=== PATIENT | male | born 1960 ===

== ENCOUNTER 2019-03-01 06:48 | Day surgery (SDC) | payer BC ==
[~2019-03-01] VITALS: Ht 170.2 cm; Wt 86.4 kg
[~2019-03-01 06:48] MED LIST: OXYC5 PO
--- NOTE | 2019-03-01 07:56 | NUR ---
PATIENT GAVE PERMISSION FOR ME TO CARE FOR HIM TODAY 03/01/19. History, Chart, Medications and Allergies reviewed before start of procedure.Patient confirms NPO status and agrees with scheduled surgery. Lungs clear T/O to Auscultation.Patient states colon prep results clear.
--- NOTE | 2019-03-01 07:58 | NUR ---
STUDENT RN RAY ASSISING IN CARE. AGREE WITH HER PREOPERATIVE CARE AND CHARTING OF PATIENT.
--- NOTE | 2019-03-01 08:15 | NUR ---
03/01/19 0814 Liss Mendez History, Chart, Medications and Allergies reviewed before start of procedure.PATIENT DETERMINED TO BE ASA APPROPRIATE FOR PROPOFOL SEDATION PRIOR TO START OF PROCEDURE BY .MONITOR INTACT WITH CONTINUOUS PULSE OXIMETRY AND INTERMITTENT BP.3-LEAD EKG REVIEWED WITH PHYSICIAN PRIOR TO START OF PROCEDURE.O2 VIA N/C INTACT THROUGHOUT SEDATION/PROCEDURE.
--- NOTE | 2019-03-01 08:31 | NUR ---
FROM ENDO 1 TO STEP VSS WAKING UP
--- NOTE | 2019-03-01 08:31 | NUR ---
RECIEVED PATIENT AND REPORT FROM RAJESH ANDERSON
--- NOTE | 2019-03-01 08:40 | NUR ---
Discharge instructions reviewed with patient. Patient verbalizes understanding. Copy given to patient to take home. Patient States Post-Procedure ride home has been arranged.
--- NOTE | 2019-03-01 08:46 | NUR ---
Discharged via wheelchair to private car for ride home.
== END 2019-03-01 22:54 | disposition home or self-care (01) ==
LOC: ORSCMMR 06:48 → ORD 08:00 → ORSCMMR 22:54
PROVIDERS: Internal Medicine Gastroenterology
PROC: 0DJD8ZZ Inspection of Lower Intestinal Tract, Via Natural or Artificial Opening Endoscopic (ICD-10-PCS; principal; 2019-03-01 08:00)
DX: Z12.11 Encounter for screening for malignant neoplasm of colon (principal); K57.30 Diverticulosis of large intestine without perforation or abscess without bleeding
CPT/HCPCS: J2704; J7120

== ENCOUNTER 2020-01-23 04:27 | Emergency (ER) | payer BC ==
[~2020-01-23] VITALS: Ht 172.7 cm; Wt 77.1 kg
== END 2020-01-23 10:46 | disposition home or self-care (01) ==
LOC: ER 04:27
DX: F15.129 Other stimulant abuse with intoxication, unspecified (principal)
CPT/HCPCS: 93005; 93010; 99284-25